=== PATIENT | male | born 1965 | race Caucasian/White ===

== ENCOUNTER 2020-01-18 10:38 | Emergency (ER) | payer OTHER ==
[2020-01-18 10:51] VITALS: BP 130/83; PULSE 110; TEMP 98.3; BMI 25.8
== END 2020-01-18 11:32 | disposition home or self-care (01) ==
LOC: JERFT 10:38
DX: L02.234 Carbuncle of groin (principal)
CPT/HCPCS: 99283-25

== ENCOUNTER 2022-06-28 21:35 | Emergency (ER) | payer OTHER ==
[2022-06-28 21:56] VITALS: BP 143/87; PULSE 98; RESP 18; TEMP 98.1; BMI 26.3
[2022-06-28] MEDS ORDERED: LIDOCAINE HCL 2% (20ML MULTI-DOSE VIAL) ONE ×2 (22:54→23:24)
[2022-06-28] MEDS ORDERED: CEPHALEXIN MONOHYDRATE 500 MG CAPSULE (UD) PO ONE (23:09)
[2022-06-28] MEDS ORDERED: LIDOCAINE HCL 2% (20ML MULTI-DOSE VIAL) INF ONE (23:13)
[2022-06-28] MEDS ORDERED: CEPHALEXIN MONOHYDRATE 500 MG CAPSULE (UD) ONE (23:24)
== END 2022-06-28 23:38 | disposition home or self-care (01) ==
LOC: JER 21:35
DX: L03.012 Cellulitis of left finger (principal)
CPT/HCPCS: 99283-25